=== PATIENT | male | born 1990 | race Caucasian/White ===

== ENCOUNTER 2016-10-21 19:58 | Emergency (ER) | payer OTHER ==
[2016-10-21 20:37] VITALS: BP 128/87; PULSE 62; RESP 19; TEMP 97.3; O2SAT 96
[2016-10-21] MEDS ORDERED: OXYCODONE/APAP 5/325 TAB PO ONE (21:24)
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
== END 2016-10-21 22:40 | disposition home or self-care (01) ==
DX: S63.501A Unspecified sprain of right wrist, initial encounter (principal); F17.200 Nicotine dependence, unspecified, uncomplicated; V49.49XA Driver injured in collision with other motor vehicles in traffic accident, initial encounter; Y92.410 Unspecified street and highway as the place of occurrence of the external cause; Y99.0 Civilian activity done for income or pay; Y93.89 Activity, other specified
CPT/HCPCS: L3807

== ENCOUNTER → 2016-11-03 | Outpatient (CLI) | payer OTHER | LOC: BRMIMAGING 14:34 | PROVIDERS: ATTEND Internal Medicine | DX: M54.12 Radiculopathy, cervical region (principal); M25.532 Pain in left wrist | CPT/HCPCS: 72052-PO; 73110-PO ==